=== PATIENT | female | born 1995 | race Caucasian/White ===

== ENCOUNTER 2020-08-27 08:18 | Emergency (ER) | payer OTHER, SELFPAY ==
[2020-08-27 08:25] VITALS: BP 110/66; PULSE 79; RESP 16; TEMP 36.9; O2SAT 99
--- NOTE | 2020-08-27 08:33 | ED.URI ---
HPI - URI/Sore Throat General Chief Complaint: Upper Respiratory Infection Stated Complaint: Sore throat Time Seen by Provider: 08/27/20 08:33 Source: patient and RN notes reviewed Mode of arrival: ambulatory Limitations: no limitations History of Present Illness HPI Narrative: 24-year-old female who presents to [facility] care with complaints of sore throat since last evening and nasal drainage starting this morning. Patient states no complaints of headache, sinus pressure, ear pain, no known fevers chills or sweats, and no cough. Patient is 6 weeks and is breast feeding. Patient denies any myalgia, no nausea or vomiting, or diarrhea, denies any shortness or breath at rest or with exertion, no change in taste or smell or any known exposure to COVID. Patient has not taken any OTC medications for her symptoms. MD elicited complaint: sore throat Related Data Home Medications Medication Instructions Recorded Confirmed No Home Medications 08/27/20 08/27/20 Allergies Allergy/AdvReac Type Severity Reaction Status Date / Time erythromycin base Allergy Intermediate Unknown Verified 08/27/20 08:22 morphine Allergy Mild Swelling Verified 08/27/20 08:22 vancomycin Allergy Mild Rash Verified 08/27/20 08:22 Review of Systems Review of Systems: Narrative: CONSTITUTIONAL: Denies fever, chills, or sweats. EYES: Denies visual changes, redness, or discharge. ENT: Positive rhinorrhea,sinus congestion, sore throat, no otalgia. CARDIOVASCULAR: Denies chest pain, palpitations, or edema. RESPIRATORY: Denies cough or dyspnea. GASTROINTESTINAL: Denies abdominal pain, nausea, vomiting, or diarrhea. GENITOURINARY: Denies dysuria or hematuria. SKIN: Denies rash or itching. MUSCULOSKELETAL: Denies back pain, joint pain, or myalgia. NEUROLOGIC: Denies headache, numbness, or weakness. PSYCHIATRIC: Denies anxiety or depression. All systems reviewed & are unremarkable except as noted in HPI and below PMFSH Past Medical History Medical History (Updated 08/27/20 @ 08:56 by Felicia Saunders NP) Eczema MRSA infection 2008 boil on leg Psoriasis Family History Family History (Updated 08/27/20 @ 09:06 by Felicia Saunders NP) Father Diabetes mellitus Social History Social History (Updated 08/27/20 @ 08:52 by Felicia Saunders NP) Smoking status: Never smoker Living arrangements: with family Gender identity (if verbalized by the patient): Female Comments At time of signature, agree with nursing past medical, surgical, social and family history. There is no relevant family history pertinent to the presenting complaint Exam Narrative: Exam Narrative: GENERAL: Well-appearing, well-nourished, and in no acute distress. HEAD: Normocephalic, atraumatic. EYES: PERRLA and EOMI. ENT: Nares have mild redness with clear rhinorrhea no epistaxis. Mucous membranes moist.Tm's normal with good light reflex, throat mild redness with no exudates or lesions, tonsils have some swelling Right>Left, post nasal drainage noted in back of throat. NECK: Supple.no lymphadenopathy CHEST: Clear to auscultation. No respiratory distress.SAO2 99% on room air HEART: Regular rate and rhythm. No murmur heard. Normal peripheral pulses. ABDOMEN: Soft, nontender, nondistended, normal active bowel sounds. EXTREMITIES: Normal range of motion. No edema. SKIN: Warm, dry, no rash. NEURO: No focal deficits. Alert and oriented x3. Course Vital Signs Vital signs: Vital Signs Temperature 36.9 C 08/27/20 08:25 Pulse Rate 79 08/27/20 08:25 Respiratory Rate 16 08/27/20 08:25 Blood Pressure 110/66 08/27/20 08:25 Pulse Oximetry 99 08/27/20 08:25 Temperature 36.9 C 08/27/20 08:25 Pulse Rate 79 08/27/20 08:25 Respiratory Rate 16 08/27/20 08:25 Blood Pressure 110/66 08/27/20 08:25 Pulse Oximetry 99 08/27/20 08:25 MDM - URI/Sore Throat Differential Diagnosis Differential diagnosis: Likely upper respiratory infection, sinusitis,
== END 2020-08-27 08:58 | disposition home or self-care (01) ==
PROVIDERS: Emergency Provider Registered Nurse
DX: J02.9 Acute pharyngitis, unspecified (principal); J31.0 Chronic rhinitis; L40.9 Psoriasis, unspecified; Z86.14 Personal history of Methicillin resistant Staphylococcus aureus infection
CPT/HCPCS: 87081; 87880; 99213; G0463

== ENCOUNTER 2022-03-05 13:04 | Emergency (ER) | payer OTHER, SELFPAY ==
--- NOTE | 2022-03-05 13:09 | ED.URI ---
HPI - URI/Sore Throat General Chief Complaint: Upper Respiratory Infection Stated Complaint: sore throat ear drainage Time Seen by Provider: 03/05/22 13:15 Source: patient Mode of arrival: ambulatory Limitations: no limitations History of Present Illness HPI Narrative: Ms. Olivares is a 26-year-old female patient presenting to the clinic today with complaints of sore throat x5 days and ear drainage to the left ear that just began this morning. She reports that she is also had a little bit of nasal congestion however her nose has not been running. She denies any fever, chills, cough, shortness of breath, or chest pain. She denies any known exposure to anybody with flu or strep, or COVID MD elicited complaint: sore throat and nasal congestion Related Data Home Medications Medication Instructions Recorded Confirmed levonorgestrel-ethinyl estrad 1 tablet PO DAILY 03/05/22 03/05/22 [Vienva] Allergies Allergy/AdvReac Type Severity Reaction Status Date / Time erythromycin base Allergy Intermediate Unknown Verified 03/05/22 13:15 morphine Allergy Mild Swelling Verified 03/05/22 13:15 vancomycin Allergy Mild Rash Verified 03/05/22 13:15 Review of Systems Review of Systems: Pertinent positives per HPI. Patient denies any fever, chills, rash, headache, visual changes, dizziness, cough, shortness of breath, chest pain, palpitations, nausea, vomiting, diarrhea, constipation, abdominal pain, or any urinary issues. PMFSH Past Medical History Medical History Eczema MRSA infection 2008 boil on leg Psoriasis Family History Family History Father Diabetes mellitus Social History Social History Smoking status: Never smoker Gender identity (if verbalized by the patient): Female Comments At the time of my signature, I reviewed and agree with the nursing past medical, surgical, social, and family history. There is no relevant family history pertinent to the patient complaint. Exam Narrative: General: Well-developed, well nourished, in no apparent distress Head: Normocephalic, atraumatic Eyes: Pupils equally round and reactive to light bilaterally, EOM intact, sclera and conjunctive clear, no discharge, lids normal Ears: TMs intact, dull, with left TM mild bulging, ear canals clear, no drainage, grossly hearing normal. Nose: Nares patent, clear nasal discharge, no inflammation, no sinus tenderness. Mouth: Oral pharynx without lesions or masses, good dentition, MMM. Oropharynx red with mild tonsillar enlargement without exudate, postnasal drip Neck: Supple, trachea midline, no enlargement of anterior or posterior cervical nodes, no thyroid masses or goiter palpable. Cardio: Regular rate and rhythm, s1 and s2 normal, no murmur appreciated. Resp: Clear to auscultation bilaterally, no rhonchi, rales, wheezing or rubs Course Course Emergency Course: Portions of this record may have been created with voice recognition software. Level of Care: Express Care Visit Vital Signs Vital signs: Vital Signs Temperature 36.8 C 03/05/22 13:10 Pulse Rate 73 03/05/22 13:10 Respiratory Rate 16 03/05/22 13:10 Blood Pressure 110/65 03/05/22 13:10 Pulse Oximetry 100 03/05/22 13:10 Temperature 36.8 C 03/05/22 13:10 Pulse Rate 73 03/05/22 13:10 Respiratory Rate 16 03/05/22 13:10 Blood Pressure 110/65 03/05/22 13:10 Pulse Oximetry 100 03/05/22 13:10 Vital signs reviewed MDM - URI/Sore Throat MDM Narrative Medical decision making narrative: At the time of visit patient is resting comfortably on the exam table. She reports left ear drainage that began this morning and sore throat x5 days. Strep screen was obtained and was negative in the clinic. I suspect the patient has a URI with eustachian tube dysfunction of the
[2022-03-05 13:10] VITALS: BP 110/65; PULSE 73; RESP 16; TEMP 36.8; O2SAT 100
== END 2022-03-05 13:45 | disposition home or self-care (01) ==
PROVIDERS: Emergency Provider Nurse Practitioner Family; PCP Hospitalist
DX: J06.9 Acute upper respiratory infection, unspecified (principal); H69.92 Unspecified Eustachian tube disorder, left ear; R09.82 Postnasal drip
CPT/HCPCS: 87081; 87880; 99213; G0463

== ENCOUNTER 2022-03-09 11:31 | Emergency (ER) | payer OTHER, SELFPAY ==
[2022-03-09 11:40] VITALS: BP 101/73; PULSE 86; RESP 16; TEMP 36.7; O2SAT 97
--- NOTE | 2022-03-09 12:59 | ED.SKABFB ---
HPI - Skin/Abscess/Foreign Bdy General Chief complaint: Skin/Abscess/Foreign Body Stated complaint: Hives all over Time Seen by Provider: 03/09/22 12:59 Source: patient and RN notes reviewed Mode of arrival: ambulatory Limitations: no limitations History of Present Illness HPI narrative: 26-year-old female presents with concern for hives. Reports hives started 2 days ago on her face, have spread to her neck and abdomen. She reports that hives change in nature, change locations. Reports they are itchy. Reports she is taken Benadryl a couple of times, however it makes her tired so she cannot take it very often. She denies swollen lips, swollen tongue, trouble breathing, nausea, vomiting, diarrhea. She denies any known triggers. MD complaint: rash Related Data Home Medications Medication Instructions Recorded Confirmed levonorgestrel-ethinyl estradiol 1 tablet PO DAILY 03/05/22 03/09/22 0.1 mg-20 mcg tablet (Vienva) Allergies Allergy/AdvReac Type Severity Reaction Status Date / Time erythromycin base Allergy Intermediate Unknown Verified 03/09/22 12:28 morphine Allergy Mild Swelling Verified 03/09/22 12:28 vancomycin Allergy Mild Rash Verified 03/09/22 12:28 Review of Systems Review of Systems: CONSTITUTIONAL: Denies malaise, chills, sweats, or fever. EYES: Denies redness, or discharge. ENT: Denies rhinorrhea, congestion, swollen lips, swollen tongue CARDIOVASCULAR: Denies chest pain, palpitations, or edema. RESPIRATORY: Denies cough or dyspnea. GASTROINTESTINAL: Denies abdominal pain, nausea, vomiting SKIN: Reports rash face, neck, abdomen MUSCULOSKELETAL: Denies joint painor myalgia. NEUROLOGIC: Denies headache. All systems reviewed & are unremarkable except as noted in HPI and below PMFSH Past Medical History Medical History Eczema MRSA infection 2008 boil on leg Psoriasis Family History Family History Father Diabetes mellitus Social History Social History Smoking status: Never smoker Gender identity (if verbalized by the patient): Female Comments At time of signature, agree with nursing past medical, surgical, social and family history. There is no relevant family history pertinent to the presenting complaint Exam Narrative: GENERAL: Well-appearing, well-nourished, and in no acute distress. HEAD: Normocephalic, atraumatic. EYES: PERRLA, conjunctivae clear, and EOMI. ENT: Mucous membranes moist. Oropharynx without edema, erythema or lesions. NECK: Supple. No lymphadenopathy CHEST: Clear to auscultation. No respiratory distress. HEART: Regular rate and rhythm. SKIN: Warm, dry. Rash noted on the face, abdomen, neck NEURO: Alert and oriented x3. PSYCH: Normal mood and affect Course Course Emergency Course: Patient is aware of diagnosis, understands and agrees to treatment plan. Anticipatory guidance given. Patient agrees to follow-up as directed and is aware of reasons to seek care at the emergency department. Portions of this record may have been created with voice recognition software Level of Care: Express Care Visit Vital Signs Vital signs: Vital Signs Temperature 98.1 F 03/09/22 11:40 Pulse Rate 86 03/09/22 11:40 Respiratory Rate 16 03/09/22 11:40 Blood Pressure 101/73 03/09/22 11:40 Pulse Oximetry 97 03/09/22 11:40 Oxygen Delivery Room Air 03/09/22 11:40 Temperature 98.1 F 03/09/22 11:40 Pulse Rate 86 03/09/22 11:40 Respiratory Rate 16 03/09/22 11:40 Blood Pressure 101/73 03/09/22 11:40 Pulse Oximetry 97 03/09/22 11:40 Oxygen Delivery Room Air 03/09/22 11:40 Reviewed. MDM - Skin/Abscess/Foreign Bdy MDM Narrative Medical decision making narrative: Does not appear at this time to be erythema multiforme, bullous, SJS, TEN; no evidence at this
== END 2022-03-09 13:10 | disposition home or self-care (01) ==
PROVIDERS: Emergency Provider Nurse Practitioner; PCP Hospitalist
DX: L50.9 Urticaria, unspecified (principal); L40.9 Psoriasis, unspecified; Z86.14 Personal history of Methicillin resistant Staphylococcus aureus infection
CPT/HCPCS: 99213; G0463

== ENCOUNTER 2022-04-03 12:03 | Emergency (ER) | payer OTHER, SELFPAY ==
--- NOTE | 2022-04-03 12:04 | ED.SKABFB ---
HPI - Skin/Abscess/Foreign Bdy General Chief complaint: Skin/Abscess/Foreign Body Stated complaint: Rash Time Seen by Provider: 04/03/22 12:04 Source: patient Mode of arrival: ambulatory Limitations: no limitations History of Present Illness HPI narrative: Ms. Olivares is a 26-year-old female patient presenting to the clinic today with complaints of a rash. She reports she had this same rash last month and was given a Rx for prednisone and this helped. Have bilateral eye itching, lid swelling, and clear watery discharge. Has itchy rashed area on her face and right arm. Related Data Home Medications Medication Instructions Recorded Confirmed levonorgestrel-ethinyl estradiol 1 tablet PO DAILY 03/05/22 04/03/22 0.1 mg-20 mcg tablet (Vienva) Allergies Allergy/AdvReac Type Severity Reaction Status Date / Time erythromycin base Allergy Intermediate Unknown Verified 04/03/22 12:12 morphine Allergy Mild Swelling Verified 04/03/22 12:12 vancomycin Allergy Mild Rash Verified 04/03/22 12:12 Review of Systems Review of Systems: Pertinent positives per HPI. Patient denies any fever, chills, headache, visual changes, dizziness, cough, runny nose, sore throat, shortness of breath, chest pain, palpitations, nausea, vomiting, diarrhea, constipation, abdominal pain, or any urinary issues. PMFSH Past Medical History Medical History Eczema MRSA infection 2008 boil on leg Psoriasis Family History Family History Father Diabetes mellitus Social History Social History Smoking status: Never smoker Gender identity (if verbalized by the patient): Female Comments At the time of my signature, I reviewed and agree with the nursing past medical, surgical, social, and family history. There is no relevant family history pertinent to the patient complaint. Exam Narrative: General: Well-developed, well nourished, in no apparent distress Head: Normocephalic, atraumatic Eyes: Pupils equally round and reactive to light bilaterally, EOM intact, injected sclera and conjunctive, watery discharge, eyelid swelling Ears: TMs intact and clear, ear canals clear, no drainage, grossly hearing normal. Nose: Nares patent, no discharge, no inflammation, no sinus tenderness. Mouth: Oropharynx without lesions or masses, good dentition, MMM. Cardio: Regular rate and rhythm, s1 and s2 normal, no murmur appreciated. Resp: Clear to auscultation bilaterally, no rhonchi, rales, wheezing or rubs. Integumentary: [place], warm, and dry, intact without lesion, red raised itchy rash to the anterior neck, chin, and right volar arm Course Course Emergency Course: Portions of this record may have been created with voice recognition software. Level of Care: Express Care Visit Vital Signs Vital signs: Vital signs reviewed MDM - Skin/Abscess/Foreign Bdy MDM Narrative Medical decision making narrative: At the time of visit patient is resting comfortably on the exam table. I suspect patient has allergic dermatitis as well as allergic conjunctivitis. Give her a 10 mg IM injection of Decadron in the clinic. We will follow-up with a course of prednisone and also some Pred forte eyedrops. Supportive measures were discussed with the patient she voiced understanding of discharge instructions and agrees to the treatment plan Differential Diagnosis Differential diagnosis: Likely viral exanthem, urticaria, allergic reaction to drug, eczema and contact dermatitis Discharge Plan Discharge Clinical Impression: Contact dermatitis Qualifiers: Contact dermatitis type: allergic Contact dermatitis trigger: unspecified trigger Qualified Code(s): L23.9 - Allergic contact dermatitis, unspecified cause Acute allergic conjunctivitis Qualifiers: Laterality: bilateral Qualified Code(
[2022-04-03 12:07] VITALS: BP 122/83; PULSE 99; RESP 16; TEMP 37.1; O2SAT 98
== END 2022-04-03 12:24 | disposition home or self-care (01) ==
PROVIDERS: Emergency Provider Nurse Practitioner Family
DX: L23.9 Allergic contact dermatitis, unspecified cause (principal); H10.13 Acute atopic conjunctivitis, bilateral; Z86.14 Personal history of Methicillin resistant Staphylococcus aureus infection
CPT/HCPCS: 96372; 99213; G0463; J1100

== ENCOUNTER 2022-11-07 15:01 | Emergency (ER) | payer OTHER, SELFPAY ==
[2022-11-07 15:14] VITALS: BP 117/70; PULSE 100; RESP 18; TEMP 37.3; O2SAT 98
--- NOTE | 2022-11-07 15:23 | ED.URI ---
HPI - URI/Sore Throat General Chief Complaint: Upper Respiratory Infection Stated Complaint: Sore Throat Time Seen by Provider: 11/07/22 15:24 History of Present Illness HPI Narrative: sore throat pain no drooling no trouble swallowing Related Data Home Medications Medication Instructions Recorded Confirmed levonorgestrel-ethinyl estradiol 1 tablet PO DAILY 03/05/22 04/03/22 0.1 mg-20 mcg tablet (Vienva) Allergies Allergy/AdvReac Type Severity Reaction Status Date / Time erythromycin base Allergy Intermediate Unknown Verified 11/07/22 15:26 morphine Allergy Mild Swelling Verified 11/07/22 15:26 vancomycin Allergy Mild Rash Verified 11/07/22 15:26 Review of Systems Review of Systems: CONSTITUTIONAL: Denies fever, chills, or sweats. EYES: Denies visual changes, redness, or discharge. ENT: Denies rhinorrhea, congestion, sore throat, or otalgia. CARDIOVASCULAR: Denies chest pain, palpitations, or edema. RESPIRATORY: Denies cough or dyspnea. GASTROINTESTINAL: Denies abdominal pain, nausea, vomiting, or diarrhea. GENITOURINARY: Denies dysuria or hematuria. SKIN: Denies rash or itching. MUSCULOSKELETAL: Denies back pain, joint pain, or myalgia. NEUROLOGIC: Denies headache, numbness, or weakness. PSYCHIATRIC: Denies anxiety or depression. PMFSH Past Medical History Medical History Eczema MRSA infection 2008 boil on leg Psoriasis Family History Family History Father Diabetes mellitus Social History Social History Smoking status: Never smoker Living arrangements: with family Gender identity (if verbalized by the patient): Female Comments At time of signature, agree with nursing past medical, surgical, social and family history. There is no relevant family history pertinent to the presenting complaint Exam Narrative: GENERAL: Well-appearing, well-nourished, and in no acute distress. HEAD: Normocephalic, atraumatic. EYES: PERRLA and EOMI. ENT: Nares clear, no rhinorrhea or epistaxis. Mucous membranes moist. Mild pharyngeal erythema no trismus the he can open mouth fully NECK: Supple. CHEST: Clear to auscultation. No respiratory distress. HEART: Regular rate and rhythm. No murmur heard. Normal peripheral pulses. ABDOMEN: Soft, nontender, nondistended, normal active bowel sounds. EXTREMITIES: Normal range of motion. No edema. SKIN: Warm, dry, no rash. NEURO: No focal deficits. Alert and oriented x3. [place] Coma Scale Eye Opening: Spontaneous 4 [place] Coma Scale Motor: Obeys Commands 6 [place] Coma Scale Verbal: Oriented 5 [place] Coma Scale Total 15 Course Course Level of Care: Express Care Visit Vital Signs Vital signs: Vital Signs Temperature 37.3 C 11/07/22 15:14 Pulse Rate 100 11/07/22 15:14 Respiratory Rate 18 11/07/22 15:14 Blood Pressure 117/70 11/07/22 15:14 Pulse Oximetry 98 11/07/22 15:14 Oxygen Delivery Room Air 11/07/22 15:14 Temperature 37.3 C 11/07/22 15:14 Pulse Rate 100 11/07/22 15:14 Respiratory Rate 18 11/07/22 15:14 Blood Pressure 117/70 11/07/22 15:14 Pulse Oximetry 98 11/07/22 15:14 Oxygen Delivery Room Air 11/07/22 15:14 Discharge Plan Discharge Clinical Impression: Pharyngitis Patient Disposition: Home, Self-Care Condition: Stable Instructions: Antibiotic Form, Strep Throat (DC) Additional Instructions: Increase fluids especially juices and water [id number] cough and cold medicine of your choice for your symptoms Salt water gargles, throat lozenges or throat sprays as desired change toothbrush in 3-5 days Antibiotic as directed--finished the medication It may take the antibiotic 2-3 days to control the fever/symptoms -If you have any worsening of symptoms or any other concerns please go to the ED immediately.
== END 2022-11-07 15:30 | disposition home or self-care (01) ==
PROVIDERS: Emergency Provider Nurse Practitioner Family
DX: J02.9 Acute pharyngitis, unspecified (principal); L40.9 Psoriasis, unspecified; Z86.14 Personal history of Methicillin resistant Staphylococcus aureus infection
CPT/HCPCS: 87880; 99213; G0463

== ENCOUNTER 2023-04-05 14:31 | Emergency (ER) | payer OTHER, SELFPAY ==
[2023-04-05 14:39] VITALS: BP 110/64; PULSE 70; RESP 16; TEMP 36.9; O2SAT 100
--- NOTE | 2023-04-05 14:52 | ED.FEMALEGU ---
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 Pt states she noticed it right before she started her period. Pt states her period lasted about a normal 7 days and just ended yesterday. Pt denies any abnormal discharge. Denies any genital or urinary burning, rash, lesions, abdominal pain, or fevers. Pt states she took a pill her mom gave her which she believes is a yeast infection with no real change. Pt states she is constantly thinking she smells down there. Pt denies any recent antibiotic use and states her last sexual encounter was 7 months ago. Denies any douching or bubble baths recently. Related Data Home Medications Medication Instructions Recorded Confirmed levonorgestrel-ethinyl estradiol 1 tablet PO DAILY 03/05/22 11/07/22 0.1 mg-20 mcg tablet (Vienva) Allergies Allergy/AdvReac Type Severity Reaction Status Date / Time erythromycin base Allergy Intermediate Unknown Verified 11/07/22 15:26 morphine Allergy Mild Swelling Verified 11/07/22 15:26 vancomycin Allergy Mild Rash Verified 11/07/22 15:26 Review of Systems Review of Systems: CONSTITUTIONAL: Denies fever, chills, or sweats. EYES: Denies visual changes, redness, or discharge. ENT: Denies otalgia and sore throat CARDIOVASCULAR: Denies chest pain, palpitations, or edema. RESPIRATORY: Denies cough or dyspnea. GASTROINTESTINAL: Denies abdominal pain, nausea, vomiting, or diarrhea. GENITOURINARY: Denies dysuria or hematuria. Reports vaginal odor. SKIN: Denies rash or itching. MUSCULOSKELETAL: Denies back pain, joint pain, or myalgia. NEUROLOGIC: Denies headache, numbness, or weakness. Pertinent positives per HPI. [facility] Past Medical History Medical History Eczema MRSA infection 2008 boil on leg Psoriasis Family History Family History Father Diabetes mellitus Social History Social History Smoking status: Never smoker Living arrangements: with family Gender identity (if verbalized by the patient): Female Comments At the time of my signature, I reviewed and agree with the nursing past medical, surgical, social, and family history. There is no relevant family history pertinent to the patient complaint. Exam Narrative: GENERAL: This is a well-nourished, well-developed patient, in no apparent distress. HEAD: normocephalic, atraumatic. EYES: Sclera clear/white. Vision is grossly intact. EARS: External ears normal, auditory canals clear and without drainage. Hearing grossly intact. NOSE: External nose normal with no obvious nasal discharge, nares without redness, no rhinorrhea. THROAT: Mucous membranes moist, posterior pharynx clear. NECK: Neck supple, non-tender without lymphadenopathy, masses or thyromegaly. CARDIOVASCULAR: Regular rate RESPIRATORY: No respiratory distress GASTROINTESTINAL: Abdomen soft, non-tender, nondistended. Bowel sounds are active. No hepato-splenomegaly, or palpable masses. No guarding. SKIN: warm, intact with no suspicious lesions or rash, good texture and turgor. NEURO: awake, alert, and oriented to person, place and time. There were no obvious focal neurologic abnormalities. Course Course Level of Care: Express Care Visit Vital Signs Vital signs: Vital Signs Temperature 98.5 F 04/05/23 14:39 Pulse Rate 70 04/05/23 14:39 Respiratory Rate 16 04/05/23 14:39 Blood Pressure 110/64 04/05/23 14:39 Pulse Oximetry 100 04/05/23 14:39 Oxygen Delivery Room Air 04/05/23 14:39 Temperature 98.5 F 04/05/23 14:39 Pulse Rate 70 04/05/23 14:39 Respiratory Rate 16 04/05/23 14:39 Blood Pressure 110/64 04/05
== END 2023-04-05 14:56 | disposition home or self-care (01) ==
PROVIDERS: Emergency Provider Nurse Practitioner Family
DX: Z71.1 Person with feared health complaint in whom no diagnosis is made (principal); L40.9 Psoriasis, unspecified; Z86.14 Personal history of Methicillin resistant Staphylococcus aureus infection
CPT/HCPCS: 99211; 99213; G0463

== ENCOUNTER 2023-05-06 12:15 | Emergency (ER) | payer OTHER, SELFPAY ==
[2023-05-06] VITALS (12 sets, daily range): BP systolic 93–121; BP diastolic 70–83; PULSE 63–77; RESP 10–20; O2SAT 97–100
--- NOTE | ~2023-05-06 | CT_ITS ---
EXAMINATION: CTA chest PE protocol DATE: 05/06/2023 13:31 INDICATION: Chest pain, syncope TECHNIQUE: Computed tomography angiography (CTA) of the chest was performed with 100 mL Omnipaque-350 intravenous contrast timed to evaluate the pulmonary arteries. Coronal maximum intensity projection 3D-reconstructions were created by the technologist. Automated exposure control and iterative reconst ruction technique were employed. Exam dose: 173.21 mGy-cm total exam DLP. COMPARISON: None. FINDINGS: There is diagnostic contrast enhancement of the pulmonary arteries and no evidence of pulmo nary embolism. No thoracic aortic aneurysm or dissection is evident. No hilar or mediastinal mass lesion or lymphade nopathy. No pulmonary infiltrate or consolidation or pulmonary mass lesion. Dilated esophagus with small fluid level. No adrenal mass lesion is noted. IMPRESSION: No evidence of pulmonary embolism Dilated esophagus with small fluid level Reviewed, dictated and finalized at [facility]. Reviewed, dictated and finalized at [facility].
--- NOTE | 2023-05-06 12:24 | ECG_ITS ---
Measurements Intervals Center Line Rate: 78 P: 98 WI: 150 QRS: 106 QRSD: 84 T: 112 QT: 378 QTc: 432 Interpretive Statements SINUS RHYTHM ARM LEADS REVERSED BASELINE ARTIFACT- I, II, III, AVR, AVL, AVF, V4-V6 ATYPICAL ECG NO PREVIOUS ECG AVAILABLE FOR COMPARISON Electronically Signed On 05-06-2023 13:10:30 CDT by Samir Valdez D.O.
[2023-05-06] MEDS: KETOROLAC 30 MG/ML VIAL (*BKC) IV PUSH (12:55)
[2023-05-06 13:01] LABS: Basophils Absolute Auto 0.1 K/mm3 (0.0-0.1); Eosinophils Absolute Auto 0.1 K/mm3 (0-0.3); Eosinophils Percent Auto 1.5 % (0-4.4); Hematocrit 42.3 % (37.0-47.0); Hemoglobin 14.4 g/dL (12.0-15.0); Immature Granulocyte Absolute 0.02 K/mm3 (0.00-0.031); Immature Granulocyte Percent A 0.3 % (0-0.5); Lymphocytes Absolute Auto 2.54 K/mm3 (0.9-3.2); Lymphocytes Percent Auto 37.5 % (18.3-44.2); Mean Corpuscular Hemoglobin 30.4 pg (26-34); Mean Corpuscular Volume 89.4 fl (80-100); Mean Platelet Volume 9.1 fl (7.4-10.4); Monocytes Absolute Auto 0.6 K/mm3 (0.1-0.6); Monocytes Percent Auto 9.5 % (2.6-8.5); Neutrophils Absolute Auto 3.4 K/mm3 (1.3-6.7); Neutrophils Percent Auto 50.2 % (45.5-73.1); Platelet Count Result 282 k/mm3 (150-375); Red Blood Count 4.73 M/mm3 (4.2-5.4); Red Cell Distribution Width 12.2 % (11.5-14.5); White Blood Count 6.8 K/mm3 (4.5-10.0)
[2023-05-06 13:09] LABS: Appearance Urine Clear (Clear); Bacteria Urine None Seen /hpf; Bilirubin Urine Negative (Negative); Blood Urine Trace (Negative); Color Urine Yellow (Yellow); Glucose Urine UA Negative (Negative); Ketones Urine Negative (Negative); Leukocyte Esterase Ur Negative LEU/UL (Negative); Nitrate Urine Negative (Negative); Non Pathogenic Casts 0-2; Protein Urine Negative (Negative); RBC Urine 0-2 /hpf (0-2); Specific Grav Ur 1.004 (1.001-1.035); Squamous Epithelial Cell Urine None seen /hpf (Few); Urobilinogen Urine 0.2 mg/dL (<2.0); WBC Urine 0-5 /hpf; pH Urine 7.5 (5.0-9.0)
--- NOTE | 2023-05-06 13:10 | ED.SYNCOPE ---
HPI - Syncope General Chief Complaint: Syncope Stated Complaint: near syncope, chest discomfort Time Seen by Provider: 05/06/23 12:18 History of Present Illness HPI narrative: Patient is a 27-year-old female who presents ER with chest pain and near syncope. She was sitting at her desk when she developed some pain in her left-sided chest and around to the center chest. She felt like she could not breathe. She then got lightheaded and almost passed out. She continues to have some pain in the left side chest especially with breathing. She is on control. No history of blood clots. No hemoptysis. Denies fevers or chills or sweats. Patient recently underwent balloon dilation for achalasia 2 weeks ago. She has been having normal eating and drinking since then and had no chest discomfort at that time. No racing of the heart. No additional concerns. Related Data Home Medications Medication Instructions Recorded Confirmed levonorgestrel-ethinyl estradiol 1 tablet PO DAILY 03/05/22 11/07/22 0.1 mg-20 mcg tablet (Vienva) Allergies Allergy/AdvReac Type Severity Reaction Status Date / Time erythromycin base Allergy Intermediate Unknown Verified 05/06/23 12:54 morphine Allergy Mild Swelling Verified 05/06/23 12:54 vancomycin Allergy Mild Rash Verified 05/06/23 12:54 Review of Systems Review of Systems: All systems reviewed & are unremarkable except as noted in HPI and below Constitutional: Constitutional: Denies chills, Denies fatigue and Denies fever(s) ENT: Denies nasal congestion and Denies sore throat Cardiovascular: Cardiovascular: Reports chest pain, Denies rapid heart rate and Denies radiating jaw, neck or arm pain Respiratory: Respiratory: Denies cough, Reports dyspnea and Denies wheezing Gastrointestinal: Gastrointestinal: Denies abdominal pain, Denies nausea and Denies vomiting Neurologic: Reports syncope (Near), Denies headache(s), Denies focal weakness and Denies numbness PMFSH Past Medical History Medical History (Updated 05/06/23 @ 15:23 by Lee Dutton MD) Achalasia Eczema MRSA infection 2008 boil on leg Psoriasis Surgical History Surgical History (Updated 05/06/23 @ 13:12 by Lee Dutton MD) History of esophagogastroduodenoscopy (EGD) Family History Family History Father Diabetes mellitus Social History Social History Smoking status: Never smoker Living arrangements: with family Gender identity (if verbalized by the patient): Female Exam Narrative: GENERAL: Well-appearing, well-nourished, and in no acute distress. HEAD: Normocephalic, atraumatic. EYES: PERRL and EOMI. ENT: Mucous membranes moist. CHEST: Clear to auscultation. No respiratory distress. HEART: Regular rate and rhythm. Normal peripheral pulses. ABDOMEN: Soft, nontender, nondistended. EXTREMITIES: Normal range of motion. No edema. SKIN: Warm, dry, no rash. NEURO: Alert and oriented x3. PSYCH: Normal mood and affect. Course Course Emergency Course: Patient resting comfortably. Toradol improved discomfort. Informed of imaging and lab results. Patient felt appropriate for discharge home. Patient could be having chest wall pain or could be having esophageal spasm. She does have follow-up already scheduled at [facility] with her GI physician. Vital Signs Vital signs: Vital Signs Pulse Rate 77 05/06/23 12:20 Respiratory Rate 19 05/06/23 12:20 Blood Pressure 121/75 05/06/23 12:20 Pulse Oximetry 100 05/06/23 12:20 Pulse Rate 68 05/06/23 15:01 Respiratory Rate 13 05/06/23 15:01 Blood Pressure 93/71 L 05/06/23 14:45 Pulse Oximetry 100 05/06/23 15:01 MDM - Syncope Lab Data 05/06/23 12:53 05/06/23 12:53 Labs: Lab Results 05/06/23 05/06/23 Range/Units 12:50 12:53 WBC 6.8 (4.5-10.0) K/
[2023-05-06 13:13] LABS: Alanine Aminotransferase 20 U/L (6-35); Albumin Level 4.5 g/dL (3.5-5.1); Alkaline Phosphatase 53 U/L (38-126); Anion Gap 9 mmol/L (8-16); Aspartate Amino Transferase 23 U/L (14-36); Bilirubin,Total 0.3 mg/dL (0.2-1.3); Blood Urea Nitrogen 11 mg/dL (7-17); Calcium 9.4 mg/dL (8.4-10.2); Carbon Dioxide 25 mmol/L (22-30); Chloride 105 mmol/L (98-107); Estimated CRCL calculation 98 ml/min; Estimated Glomerular Filt Rate > 60; Glucose 85 mg/dL (65-110); Potassium 3.9 mmol/L (3.4-5.0); Sodium 139 mmol/L (137-145)
[2023-05-06 13:24] LABS: Add Urine Microscopic? YES
== END 2023-05-06 15:38 | disposition home or self-care (01) ==
PROVIDERS: Emergency Provider Emergency Medicine; PCP Nurse Practitioner Family
DX: R55 Syncope and collapse (principal); R07.9 Chest pain, unspecified; Z86.14 Personal history of Methicillin resistant Staphylococcus aureus infection
CPT/HCPCS: 36415; 71275; 80053; 81001; 81025; 85025; 93005; 96374; 99284; J1885; Q9967

== ENCOUNTER 2023-05-10 12:14 | Emergency (ER) | payer OTHER, SELFPAY ==
[2023-05-10 12:32] VITALS: BP 98/61; PULSE 66; RESP 16; TEMP 36.3; O2SAT 99
--- NOTE | 2023-05-10 12:35 | ED.DIZZY ---
HPI - Dizziness General Chief Complaint: Dizziness Stated Complaint: lightheaded/tunnelvision Source: patient and RN notes reviewed Mode of arrival: ambulatory Limitations: no limitations History of Present Illness HPI Narrative: Patient is a 27-year-old female who presents to the [facility] with complaints of intermittent dizziness and sweats/chills. Patient states that she has been having symptoms since Tuesday. She had a near syncopal episode on Tuesday where she fell to the ground due to shakiness. Patient denies loss consciousness during that near syncopal episode. Patient states that she went to [place] [facility] following the incident where she was checked out for near-syncope and chest pain. Patient states that she had an EKG, labs, and a full workup that was inconclusive. She denies chest pain currently. patient states that she called her primary care physician yesterday and today and they told her to wait until she saw her GI doctor on Tuesday to schedule an appointment. She denies difficulty breathing at this time, But states that she has experienced restricted breathing on Tuesday. She denies recent illness or fever. Patient is neurologically intact with no obvious neurological deficits. She denies numbness, difficulty walking, difficulty talking. Related Data Home Medications Medication Instructions Recorded Confirmed levonorgestrel-ethinyl estradiol 1 tablet PO DAILY 03/05/22 11/07/22 0.1 mg-20 mcg tablet (Vienva) Allergies Allergy/AdvReac Type Severity Reaction Status Date / Time erythromycin base Allergy Intermediate Unknown Verified 05/06/23 12:54 morphine Allergy Mild Swelling Verified 05/06/23 12:54 vancomycin Allergy Mild Rash Verified 05/06/23 12:54 Review of Systems Review of Systems: CONSTITUTIONAL: Denies fever, but reports sweats and chills. EYES: Denies visual changes, redness, or discharge. ENT: Denies otalgia and sore throat CARDIOVASCULAR: Denies chest pain, palpitations, or edema. RESPIRATORY: Denies cough or dyspnea. GASTROINTESTINAL: Denies abdominal pain, nausea, vomiting, or diarrhea. GENITOURINARY: Denies dysuria or hematuria. SKIN: Denies rash or itching. MUSCULOSKELETAL: Denies back pain, joint pain, or myalgia. NEUROLOGIC: Denies headache, numbness, or weakness. Reports dizziness. Pertinent positives per HPI. [facility] Past Medical History Medical History Achalasia Eczema MRSA infection 2008 boil on leg Psoriasis Surgical History Surgical History History of esophagogastroduodenoscopy (EGD) Family History Family History Father Diabetes mellitus Social History Social History Smoking status: Never smoker Living arrangements: with family Gender identity (if verbalized by the patient): Female Comments At the time of my signature, I reviewed and agree with the nursing past medical, surgical, social, and family history. There is no relevant family history pertinent to the patient complaint. Exam Narrative: GENERAL: This is a well-nourished, well-developed patient, in no apparent distress. HEAD: normocephalic, atraumatic. EYES: PERRL. Sclera clear/white. Vision is grossly intact. EARS: External ears normal, auditory canals clear and without drainage, TMs normal without perforation. Hearing grossly intact. NOSE: External nose normal with no obvious nasal discharge, nares without redness, no rhinorrhea. THROAT: Mucous membranes moist, posterior pharynx clear. NECK: Neck supple, non-tender without lymphadenopathy, masses or thyromegaly. CARDIOVASCULAR: Regular rate and rhythm without murmurs, gallops, or rubs. RESPIRATORY: Clear to auscultation. Breath sounds equal bilaterally. No wheezes, rales, or rhonchi. GASTROINTESTINAL: Abdomen
== END 2023-05-10 13:05 | disposition home or self-care (01) ==
PROVIDERS: Emergency Provider Nurse Practitioner; PCP Nurse Practitioner Family
DX: R42 Dizziness and giddiness (principal); Z20.822 Contact with and (suspected) exposure to COVID-19; L40.9 Psoriasis, unspecified; Z86.14 Personal history of Methicillin resistant Staphylococcus aureus infection
CPT/HCPCS: 87426; 99213; C9803; G0463

== ENCOUNTER 2023-06-09 09:02 | Emergency (ER) | payer OTHER, SELFPAY ==
--- NOTE | 2023-06-09 09:06 | ED.URI ---
HPI - URI/Sore Throat General Chief Complaint: Upper Respiratory Infection Stated Complaint: Sore Throat Source: patient and RN notes reviewed History of Present Illness HPI Narrative: 27 yo F presents to urgent care with daughter at side. Pt states she woke up this am with a sore throat and her daughter has had one since last night. Pt states her brother had strep throat recently and she is making sure that's not what is going on. Denies any fevers, chills, vomiting, diarrhea, chest pain, or SOB. Related Data Home Medications Medication Instructions Recorded Confirmed levonorgestrel-ethinyl estradiol 1 tablet PO DAILY 03/05/22 06/09/23 0.1 mg-20 mcg tablet (Vienva) Allergies Allergy/AdvReac Type Severity Reaction Status Date / Time erythromycin base Allergy Intermediate Unknown Verified 05/06/23 12:54 morphine Allergy Mild Swelling Verified 05/06/23 12:54 vancomycin Allergy Mild Rash Verified 05/06/23 12:54 Review of Systems Review of Systems: Pertinent positives and pertinent negatives per HPI. [facility] Past Medical History Medical History Achalasia Eczema MRSA infection 2008 boil on leg Psoriasis Surgical History Surgical History History of esophagogastroduodenoscopy (EGD) Family History Family History Father Diabetes mellitus Social History Social History Smoking status: Never smoker Living arrangements: with family Gender identity (if verbalized by the patient): Female Comments At the time of my signature, I reviewed and agree with the nursing past medical, surgical, social, and family history. There is no relevant family history pertinent to the patient complaint. Exam Narrative: GENERAL: This is a well-nourished, well-developed patient, in no apparent distress. HEAD: normocephalic, atraumatic. EYES: Sclera clear/white. Vision is grossly intact. EARS: External ears normal, auditory canals clear and without drainage, TMs normal without perforation. Hearing grossly intact. NOSE: External nose normal with no obvious nasal discharge, nares without redness, no rhinorrhea. THROAT: Mucous membranes moist, posterior pharynx clear. NECK: Neck supple, non-tender without lymphadenopathy, masses or thyromegaly. CARDIOVASCULAR: Regular rate and rhythm without murmurs, gallops, or rubs. RESPIRATORY: Clear to auscultation. Breath sounds equal bilaterally. No wheezes, rales, or rhonchi. GASTROINTESTINAL: Abdomen soft, non-tender, nondistended. Bowel sounds are active. No hepato-splenomegaly, or palpable masses. No guarding. SKIN: warm, intact with no suspicious lesions or rash, good texture and turgor. NEURO: awake, alert, and oriented to person, place and time. There were no obvious focal neurologic abnormalities. EXTREMITIES: No clubbing, cyanosis, or edema. No joint tenderness, effusion, or edema noted. BACK: Nontender without deformity or crepitus. No flank tenderness. Course Course Level of Care: Express Care Visit Vital Signs Vital signs: Vital Signs Temperature 97.6 F 06/09/23 09:07 Pulse Rate 71 06/09/23 09:07 Respiratory Rate 16 06/09/23 09:07 Blood Pressure 109/60 06/09/23 09:07 Pulse Oximetry 100 06/09/23 09:07 Oxygen Delivery Room Air 06/09/23 09:07 Temperature 97.6 F 06/09/23 09:19 Pulse Rate 71 06/09/23 09:19 Respiratory Rate 16 06/09/23 09:19 Blood Pressure 109/60 06/09/23 09:19 Pulse Oximetry 100 06/09/23 09:19 Oxygen Delivery Room Air 06/09/23 09:19 Reviewed MDM - URI/Sore Throat MDM Narrative Medical decision making narrative: Rapid strep is negative in the office; however we will send to the lab for confirmation; there is a small percentage chance that it can come back positive; if it is, w
[2023-06-09 09:07] VITALS: BP 109/60; PULSE 71; RESP 16; TEMP 36.4; O2SAT 100
[2023-06-09 09:19] VITALS: BP 109/60; PULSE 71; RESP 16; TEMP 36.4; O2SAT 100
== END 2023-06-09 09:42 | disposition home or self-care (01) ==
PROVIDERS: Emergency Provider Nurse Practitioner Family; PCP Nurse Practitioner Family
DX: J02.9 Acute pharyngitis, unspecified (principal); L40.9 Psoriasis, unspecified; Z86.14 Personal history of Methicillin resistant Staphylococcus aureus infection
CPT/HCPCS: 87081; 87880; 99213; G0463